=== PATIENT | female | born 1990 | race Two or more races ===

== ENCOUNTER 2017-02-21 14:28 | Emergency (ER) | payer OTHER, MEDICAID ==
[2017-02-21] MEDS ORDERED: OXYCODONE-ACETAMINOPHEN 5-325 MG TABLET PO ONE (17:27)
[2017-02-21] MEDS ORDERED: ONDANSETRON 4 MG TAB.RAPDIS SL ONE (17:27)
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
[2017-02-21] MEDS ORDERED: DIPH/PERTUSS(ACELL)/TETANUS VAC/PF 0.5 ML SYR (>=10YO) IM ONE (18:59)
[2017-02-21] MEDS ORDERED: HYDROCODONE/ACETAMINOPHEN 5-325 MG 6 TAB/DSPK PO PRN (18:59)
[2017-02-21 20:00] VITALS: BP 128/88
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
== END 2017-02-21 19:56 | disposition home or self-care (01) ==
LOC: ER 14:28
PROC: 2W3QX1Z Immobilization of Right Lower Leg using Splint (ICD-10-PCS; principal; 2017-02-21)
DX: S93.431A Sprain of tibiofibular ligament of right ankle, initial encounter (principal); S20.211A Contusion of right front wall of thorax, initial encounter; S80.11XA Contusion of right lower leg, initial encounter; V43.02XA Car driver injured in collision with other type car in nontraffic accident, initial encounter; R07.89 Other chest pain; M79.661 Pain in right lower leg; M25.512 Pain in left shoulder; F17.200 Nicotine dependence, unspecified, uncomplicated; Z88.2 Allergy status to sulfonamides
CPT/HCPCS: 99284; 90471; 73610; 71020; 73590; 90715; 29515; S0119